=== PATIENT | female | born 1980 | race Caucasian/White ===

== ENCOUNTER 2018-09-26 13:47 | Emergency (ER) | payer SELFPAY ==
[2018-09-26 13:51] VITALS: BP 153/93; PULSE 98; RESP 16; TEMP 36.7; O2SAT 97
--- NOTE | 2018-09-26 14:06 | W.ED.GENAD ---
Discharge Plan Disposition Patient Disposition: HOME Condition: Good Discharge Details Chief Complaint: RespSymp Clinical Impression: Community acquired pneumonia Primary Care Provider: None,None ED Provider: Uri Contreras Home Meds and New Rx's Prescriptions: New doxycycline hyclate 100 mg capsule 100 mg PO BID Qty: 20 RF: 0 No Action multivitamin Tablet 1 tab PO DAILY RF: 0 Discharge Instructions Instructions: Community Acquired Pneumonia (ED) Additional Instructions: Please take the antibiotic as directed, as well as the inhaler. Do not take the antibiotic if you are . If you notice any worsening of your symptoms, or any new symptoms such as vomiting, diarrhea, fever, chills, shortness of breath, chest pain, numbness, weakness, or fainting , please return immediately to the emergency department for reevaluation. Please follow up with your primary care provider as soon as possible for reassessment and reevaluation. As always, it was a pleasure participating in your medical care today. Medical Decision Making This is a pleasant 38-year-old female with no significant past medical history except for previous PE after significant trauma and multiple fractures in the very distant past, who presents today for upper respiratory-like symptoms. For the last week she has had a mild cough, fever with T-max of 101.5, chills, productive yellow sputum. She has had other similar sick contacts at home. She is a smoker. Physical exam demonstrates localized crackles in the left lower lung guevara. Bedside limited ultrasound demonstrates B-lines, as well as air bronchograms. Vital signs demonstrate no significant tachycardia, hypoxemia or tachypnea. I discussed x-ray imaging and the patient would like to hold off on any radiographic test. Patient states specifically that this feels nothing like my previous blood clot, and I do feel that her symptoms are clinically inconsistent with a PE and consistent with bacterial pneumonia. I do feel that treatment is certainly reasonable and indicated. I discussed further imaging, and laboratory work-up for PE rule out, and the patient would like to hold off for the time being understanding the risks and benefits of this. Additionally the patient is unable to conceive. We will start the patient on doxycycline, give an inhaler, and recommend smoking cessation. Patient will be discharged home with close follow-up. We discussed red flags which to return. I have extensively reviewed the treatment plan and discharge instructions with the patient and their family. I have addressed all patient concerns at this time. The patient and family was made aware of what symptoms to monitor for that would warrant a return to the emergency department. Discussed the plan with the patient and family, they demonstrate verbal understanding and agreement with our assessment and plan at this time. HPI General Date/Time Provider Initiated Documentation: 09/26/18 13:48. HPI Narrative: This is a pleasant 38-year-old female with a past medical history of severe polytrauma in the distant past which led to subsequent blood clot, for which she no longer requires anticoagulation, as well as a history of inability to conceive, who presents today for evaluation of cough, fever and chills. The patient states that over the last week she has had a mild cough with productive yellow sputum. She has had a fever at home with a temperature of 101.5. She denies any severe shortness of breath but does admit to continued mild tobacco abuse. She does admit to very mild chest pain when she coughs, but no general pleuritic chest pain. She does admit to other sick contacts with similar but less severe symptoms. She denies any recent admissions, or any recent antibiotic use. Denies PE risk factors such as recent long car rides, immobilization, recent surgery, family history of PE or DVT, morbid obesity, exogenous estrogen and smoking, hemoptysis, history of cancer. Related Data Home Medications Medication Instructions Recorded Confirmed doxycycline hyclate 100 mg PO BID #20 cap 09/26/18 multivitamin 1 tab PO DAILY 09/26/18 09/26/18 Previous Rx's Medication Instructions Recorded doxycycline hyclate 100 mg PO BID #20 cap 09/26/18 Allergies Allergy/AdvReac Type Severity Reaction Status Date / Time No Known Allergies Allergy Unverified 09/26/18 13:55 General Stated Complaint: RespSymp LAWANDA: 3 Review of Systems Review of Systems All systems reviewed & are unremarkable except as noted in HPI and below PFSH Social History Smoking/Tobacco Use Status: Current every day Tobacco Type: cigarettes Alcohol Intake: never Drug use: Never Substance use type: does not use Do you feel safe at home: Yes Do you feel safe in your relationship?: Yes Exam Narrative Exam Narrative: 1.Const: Well-nourished, Well-developed, appearing stated age 2.Eyes: PERRL, no conjunctival injection, and symmetrical lids. 3.ENT: Atraumatic external nose and ears. Moist MM. Neck: Symmetric, trachea midline, No thyromegaly. Patient demonstrates good movement of cervical neck. There is no nuchal rigidity, no nuchal tenderness. Patient is able to flex the neck without any difficulty or significant pain. Negative Kernig's and Brudzinski sign. 4.CVS: +S1/S2, No murmurs or gallops. Peripheral pulses 2+ and equal in all extremities. Brisk capillary refill in all extremities. 5.RESP: Unlabored respiratory effort. No wheezes or rhonchi, minimal crackles noted in the left lower lung field. 6.GI: Soft, Nontender/Nondistended, No hepatosplenomegaly. No guarding or rebound. 7.MSK: Normocephalic/Atraumatic, Extremities w/o deformity or ttp No cyanosis or clubbing, Normal movement of all extremities. No calf tenderness or unilateral swelling. 8.Skin: Warm, Dry. No rashes or lesions. 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 Sensation grossly intact, no focal neurologic deficits. 10.Psych: (AAO) x3. Appropriate mood and affect Course Vital Signs Temperature 36.7 C 09/26/18 13:51 Pulse 98 H 09/26/18 13:51 Respiratory Rate 16 09/26/18 13:51 Blood Pressure 153/93 H 09/26/18 13:51 Pulse Oximetry 97 09/26/18 13:51 Temperature 36.7 C 09/26/18 13:51 Temperature Source Temporal Artery Scan 09/26/18 13:51 Pulse 98 H 09/26/18 13:51 Respiratory Rate 16 09/26/18 13:51 Respiratory Effort Non-Labored 09/26/18 13:56 Respiratory Depth Normal 09/26/18 13:56 Blood Pressure 153/93 H 09/26/18 13:51 Blood Pressure Position Sitting 09/26/18 13:51 Pulse Oximetry 97 09/26/18 13:51 Oxygen Delivery Method Room Air 09/26/18 13:51 Oxygen Flow Rate 0 09/26/18 13:51 Pain Level 3 09/26/18 13:51
[2018-09-26] MEDS: Inhaler, Assist Device 1 EACH MC (14:13)
[2018-09-26] MEDS: Albuterol HFA 8 GM 60 PUFF INH IH (14:13)
== END 2018-09-26 14:13 | disposition home or self-care (01) ==
PROVIDERS: Emergency Provider Student in an Organized Health Care Education/Training Program
DX: J18.9 Pneumonia, unspecified organism (principal); F17.210 Nicotine dependence, cigarettes, uncomplicated
CPT/HCPCS: 99283